=== PATIENT | male | born 1940 | race Caucasian/White ===

== ENCOUNTER → 2016-03-28 | Outpatient (CLI) | payer MEDICARE ==
[~2016-03-28] MED LIST: CLOBETASOL PROP0.053 TP; COUMADIN 5MG5 MG/TAB PO; GLUCOPHAGE1000 MG PO; LANTUS SOLOS100 U/ML SC; SIMVASTATIN5 M1 PO
== END ==
LOC: LAB 10:02
DX: J02.8 Acute pharyngitis due to other specified organisms (principal); R50.9 Fever, unspecified; L98.9 Disorder of the skin and subcutaneous tissue, unspecified; R68.89 Other general symptoms and signs

== ENCOUNTER → 2016-05-15 | Outpatient (CLI) | payer MEDICARE | LOC: LAB 09:38 | DX: Z51.81 Encounter for therapeutic drug level monitoring (principal); Z90.01 Acquired absence of eye; I82.409 Acute embolism and thrombosis of unspecified deep veins of unspecified lower extremity ==

== ENCOUNTER → 2016-07-13 | Outpatient (CLI) | payer MEDICARE ==
[2016-01-23 14:36] VITALS: BP 156/85
== END ==
LOC: LAB 10:10
DX: Z51.81 Encounter for therapeutic drug level monitoring (principal); Z79.01 Long term (current) use of anticoagulants; I82.409 Acute embolism and thrombosis of unspecified deep veins of unspecified lower extremity

== ENCOUNTER → 2016-09-26 | Outpatient (CLI) | payer MEDICARE ==
[2016-01-23 14:36] VITALS: BP 156/85
== END ==
LOC: LAB 09:31
DX: Z51.81 Encounter for therapeutic drug level monitoring (principal); I82.409 Acute embolism and thrombosis of unspecified deep veins of unspecified lower extremity

== ENCOUNTER → 2016-12-04 | Outpatient (CLI) | payer MEDICARE ==
[2016-01-23 14:36] VITALS: BP 156/85
== END ==
LOC: LAB 06:55
DX: I82.409 Acute embolism and thrombosis of unspecified deep veins of unspecified lower extremity (principal); E11.9 Type 2 diabetes mellitus without complications; E78.2 Mixed hyperlipidemia; E03.8 Other specified hypothyroidism

== ENCOUNTER → 2017-04-03 | Outpatient (CLI) | payer MEDICARE ==
[2016-01-23 14:36] VITALS: BP 156/85
[2017-04-03 10:57] LABS: PROTHROMBIN TIME 29.5 SECONDS (9.0-12.0)
== END ==
LOC: LAB 10:04
PROVIDERS: Family Medicine
DX: I80.12 Phlebitis and thrombophlebitis of left femoral vein (principal); L28.0 Lichen simplex chronicus

== ENCOUNTER → 2017-06-25 | Outpatient (CLI) | payer MEDICARE ==
[2016-01-23 14:36] VITALS: BP 156/85
[2017-06-25 07:56] LABS: PROTHROMBIN TIME 26.8 SECONDS (9.0-12.0)
== END ==
LOC: LAB 07:00
PROVIDERS: Family Medicine
DX: I80.12 Phlebitis and thrombophlebitis of left femoral vein (principal); E11.9 Type 2 diabetes mellitus without complications; L28.0 Lichen simplex chronicus; E78.2 Mixed hyperlipidemia; I10 Essential (primary) hypertension; E03.9 Hypothyroidism, unspecified

== ENCOUNTER → 2017-09-27 | Outpatient (CLI) | payer MEDICARE ==
[2016-01-23 14:36] VITALS: BP 156/85
[2017-09-27 10:50] LABS: PROTHROMBIN TIME 40.4 SECONDS (9.0-12.0)
== END ==
LOC: LAB 07:07
PROVIDERS: Family Medicine
DX: I80.12 Phlebitis and thrombophlebitis of left femoral vein (principal); L28.0 Lichen simplex chronicus

== ENCOUNTER → 2017-10-04 | Outpatient (CLI) | payer MEDICARE ==
[2016-01-23 14:36] VITALS: BP 156/85
[2017-10-04 08:21] LABS: PROTHROMBIN TIME 21.8 SECONDS (9.0-12.0)
== END ==
LOC: LAB 07:19
PROVIDERS: Family Medicine
DX: I80.12 Phlebitis and thrombophlebitis of left femoral vein (principal); L28.0 Lichen simplex chronicus

== ENCOUNTER → 2017-10-19 | Outpatient (CLI) | payer MEDICARE ==
[2016-01-23 14:36] VITALS: BP 156/85
[2017-10-19 11:25] LABS: ALBUMIN 4.3 g/dL (3.5-5.0); BUN/CREATININE RATIO 19.3 (6.0-26.0); CALCIUM 9.7 mg/dL (8.4-10.2); POTASSIUM 4.5 mmol/L (3.6-5.0); TOTAL BILIRUBIN 0.7 mg/dL (0.2-1.3); TOTAL PROTEIN 7.1 g/dL (6.3-8.2)
[2017-10-19 11:52] LABS: PROTHROMBIN TIME 26.5 SECONDS (9.0-12.0)
== END ==
LOC: LAB 07:08
PROVIDERS: Family Medicine
DX: E78.2 Mixed hyperlipidemia (principal); I80.12 Phlebitis and thrombophlebitis of left femoral vein; E11.9 Type 2 diabetes mellitus without complications; E03.9 Hypothyroidism, unspecified; I10 Essential (primary) hypertension

== ENCOUNTER → 2018-01-01 | Outpatient (CLI) | payer MEDICARE ==
[2016-01-23 14:36] VITALS: BP 156/85
[2018-01-01 11:49] LABS: PROTHROMBIN TIME 26.9 SECONDS (9.0-12.0)
== END ==
LOC: LAB 11:23
PROVIDERS: Family Medicine
DX: I82.412 Acute embolism and thrombosis of left femoral vein (principal); L28.0 Lichen simplex chronicus

== ENCOUNTER → 2018-01-22 | Outpatient (CLI) | payer MEDICARE ==
[2016-01-23 14:36] VITALS: BP 156/85
== END ==
LOC: RAD 11:24
DX: M19.031 Primary osteoarthritis, right wrist (principal); R20.2 Paresthesia of skin

== ENCOUNTER → 2018-05-01 | Outpatient (CLI) | payer MEDICARE ==
[2016-01-23 14:36] VITALS: BP 156/85
[2018-05-01 10:31] LABS: PROTHROMBIN TIME 22.4 SECONDS (9.0-12.0)
== END ==
LOC: LAB 09:59
PROVIDERS: Family Medicine
DX: I82.412 Acute embolism and thrombosis of left femoral vein (principal); L28.0 Lichen simplex chronicus

== ENCOUNTER → 2018-06-30 | Outpatient (CLI) | payer MEDICARE ==
[2016-01-23 14:36] VITALS: BP 156/85
[2018-06-30 08:08] LABS: PROTHROMBIN TIME 25.7 SECONDS (9.0-12.0)
== END ==
LOC: LAB 07:09
PROVIDERS: Family Medicine
DX: I82.412 Acute embolism and thrombosis of left femoral vein (principal); E11.9 Type 2 diabetes mellitus without complications

== ENCOUNTER → 2018-08-29 | Outpatient (CLI) | payer MEDICARE ==
[2016-01-23 14:36] VITALS: BP 156/85
== END ==
LOC: LAB 09:07
PROVIDERS: Family Medicine
DX: I82.412 Acute embolism and thrombosis of left femoral vein (principal)

== ENCOUNTER → 2018-10-13 | Outpatient (CLI) | payer MEDICARE ==
[2016-01-23 14:36] VITALS: BP 156/85
[2018-10-13 09:53] LABS: PROTHROMBIN TIME 24.6 SECONDS (9.0-12.0)
== END ==
LOC: LAB 09:24
PROVIDERS: Family Medicine
DX: I82.412 Acute embolism and thrombosis of left femoral vein (principal)

== ENCOUNTER → 2018-12-18 | Outpatient (CLI) | payer MEDICARE ==
[2016-01-23 14:36] VITALS: BP 156/85
[2018-12-18 07:21] LABS: ALBUMIN 4.4 g/dL (3.4-4.8)
[2018-12-18 07:24] LABS: PROTHROMBIN TIME 27.6 SECONDS (9.0-12.0); TOTAL PROTEIN 7.3 g/dL (6.2-8.1)
[2018-12-18 07:25] LABS: TOTAL BILIRUBIN 0.7 mg/dL (0.2-1.2)
== END ==
LOC: LAB 06:59
PROVIDERS: Family Medicine
DX: I82.412 Acute embolism and thrombosis of left femoral vein (principal); E78.2 Mixed hyperlipidemia; E11.9 Type 2 diabetes mellitus without complications; E03.9 Hypothyroidism, unspecified; I10 Essential (primary) hypertension

== ENCOUNTER → 2019-03-19 | Outpatient (CLI) | payer MEDICARE ==
[2016-01-23 14:36] VITALS: BP 156/85
== END ==
LOC: LAB 09:52
PROVIDERS: Family Medicine
DX: I80.12 Phlebitis and thrombophlebitis of left femoral vein (principal)

== ENCOUNTER → 2019-04-08 | Outpatient (CLI) | payer MEDICARE ==
[2016-01-23 14:36] VITALS: BP 156/85
[2019-04-08 12:31] LABS: PROTHROMBIN TIME 25.5 SECONDS (9.0-12.0)
== END ==
LOC: LAB 12:07
PROVIDERS: Family Medicine
DX: I80.12 Phlebitis and thrombophlebitis of left femoral vein (principal); E11.9 Type 2 diabetes mellitus without complications; E78.2 Mixed hyperlipidemia; I10 Essential (primary) hypertension; E03.9 Hypothyroidism, unspecified

== ENCOUNTER → 2019-11-27 | Outpatient (CLI) | payer MEDICARE ==
[2016-01-23 14:36] VITALS: BP 156/85
[2019-11-27 10:18] LABS: PROTHROMBIN TIME 34.9 SECONDS (9.0-12.0)
== END ==
LOC: LAB 09:42
PROVIDERS: Family Medicine
DX: Z86.718 Personal history of other venous thrombosis and embolism (principal)

== ENCOUNTER → 2020-01-05 | Outpatient (CLI) | payer MEDICARE ==
[2016-01-23 14:36] VITALS: BP 156/85
[2020-01-05 07:34] LABS: ALBUMIN 4.6 g/dL (3.4-4.8); POTASSIUM 4.4 mmol/L (3.5-5.1)
[2020-01-05 07:35] LABS: CALCIUM 9.7 mg/dL (8.3-10.5)
[2020-01-05 07:37] LABS: TOTAL PROTEIN 7.5 g/dL (6.2-8.1)
[2020-01-05 07:39] LABS: TOTAL BILIRUBIN 0.8 mg/dL (0.2-1.2)
== END ==
LOC: LAB 07:09
PROVIDERS: Family Medicine
DX: I10 Essential (primary) hypertension (principal); E78.2 Mixed hyperlipidemia; E11.9 Type 2 diabetes mellitus without complications; E03.9 Hypothyroidism, unspecified

== ENCOUNTER → 2021-01-06 | Outpatient (CLI) | payer MEDICARE ==
[2021-01-06 07:27] LABS: ALBUMIN 4.2 g/dL (3.4-4.8)
[2021-01-06 07:30] LABS: TOTAL PROTEIN 7.4 g/dL (6.2-8.1)
[2021-01-06 07:32] LABS: TOTAL BILIRUBIN 0.6 mg/dL (0.2-1.2)
[2021-01-06 07:35] LABS: DIRECT BILIRUBIN 0.2 mg/dL (0.0-0.5)
== END ==
LOC: LAB 06:48
PROVIDERS: Family Medicine
DX: E78.2 Mixed hyperlipidemia (principal); E03.9 Hypothyroidism, unspecified

== ENCOUNTER → 2021-01-11 | Outpatient (CLI) | payer MEDICARE | LOC: LAB 11:13 | DX: E11.9 Type 2 diabetes mellitus without complications (principal) ==

== ENCOUNTER → 2021-04-12 | Outpatient (CLI) | payer MEDICARE | LOC: LAB 09:32 | DX: E11.9 Type 2 diabetes mellitus without complications (principal) ==

== ENCOUNTER → 2021-07-28 | Outpatient (CLI) | payer MEDICARE ==
[2021-07-28 09:07] LABS: ALBUMIN 4.5 g/dL (3.4-4.8); POTASSIUM 4.7 mmol/L (3.5-5.1)
[2021-07-28 09:09] LABS: CALCIUM 9.8 mg/dL (8.3-10.5)
[2021-07-28 09:10] LABS: TOTAL PROTEIN 7.7 g/dL (6.2-8.1)
[2021-07-28 09:12] LABS: TOTAL BILIRUBIN 0.7 mg/dL (0.2-1.2)
== END ==
LOC: LAB 08:48
PROVIDERS: Family Medicine
DX: E03.9 Hypothyroidism, unspecified (principal); E11.9 Type 2 diabetes mellitus without complications; E78.2 Mixed hyperlipidemia

== ENCOUNTER → 2021-11-30 | Outpatient (CLI) | payer MEDICARE ==
[2021-11-30 08:38] LABS: URINE APPEARANCE CLEAR; URINE COLOR YELLOW
[2021-11-30 08:39] LABS: URINE BILIRUBIN NEGATIVE (NEGATIVE); URINE BLOOD NEGATIVE (NEGATIVE); URINE KETONE NEGATIVE (NEGATIVE); URINE LEUKOCYTE ESTERASE TRACE (NEGATIVE); URINE NITRATE NEGATIVE (NEGATIVE); URINE PROTEIN(semi-quant) NEGATIVE (NEGATIVE); URINE UROBILINOGEN NORMAL (NORMAL)
== END ==
LOC: LAB 08:19
PROVIDERS: Family Medicine
DX: N39.0 Urinary tract infection, site not specified (principal)

== ENCOUNTER → 2022-01-03 | Outpatient (CLI) | payer MEDICARE ==
[2022-01-03 10:16] LABS: URINE APPEARANCE CLOUDY; URINE BILIRUBIN NEGATIVE (NEGATIVE); URINE BLOOD TRACE (NEGATIVE); URINE COLOR YELLOW; URINE KETONE NEGATIVE (NEGATIVE); URINE LEUKOCYTE ESTERASE 2+ (NEGATIVE); URINE NITRATE NEGATIVE (NEGATIVE); URINE PROTEIN(semi-quant) TRACE (NEGATIVE); URINE UROBILINOGEN NORMAL (NORMAL); URINE WBC >50 /hpf (0-3)
== END ==
LOC: LAB 09:27
PROVIDERS: Family Medicine
DX: N39.0 Urinary tract infection, site not specified (principal)

== ENCOUNTER → 2022-01-10 | Outpatient (CLI) | payer MEDICARE ==
[2022-01-10 11:03] LABS: URINE APPEARANCE CLOUDY; URINE BILIRUBIN NEGATIVE (NEGATIVE); URINE BLOOD NEGATIVE (NEGATIVE); URINE COLOR YELLOW; URINE KETONE NEGATIVE (NEGATIVE); URINE LEUKOCYTE ESTERASE 1+ (NEGATIVE); URINE NITRATE NEGATIVE (NEGATIVE); URINE PROTEIN(semi-quant) TRACE (NEGATIVE); URINE UROBILINOGEN NORMAL (NORMAL); URINE WBC 16-30 /hpf (0-3)
== END ==
LOC: LAB 10:25
PROVIDERS: Family Medicine
DX: N39.0 Urinary tract infection, site not specified (principal); E11.9 Type 2 diabetes mellitus without complications

== ENCOUNTER → 2022-01-24 | Outpatient (CLI) | payer MEDICARE | LOC: LAB 07:00 | DX: R31.29 Other microscopic hematuria (principal); E78.2 Mixed hyperlipidemia; N39.0 Urinary tract infection, site not specified; E11.9 Type 2 diabetes mellitus without complications ==

== ENCOUNTER → 2022-12-31 | Outpatient (CLI) | payer MEDICARE | LOC: LAB 10:05 | DX: E11.9 Type 2 diabetes mellitus without complications (principal); I10 Essential (primary) hypertension ==

== ENCOUNTER → 2023-04-03 | Outpatient (CLI) | payer MEDICARE | LOC: LAB 08:41 | PROVIDERS: Family Medicine | DX: E11.9 Type 2 diabetes mellitus without complications (principal); E03.9 Hypothyroidism, unspecified ==

== ENCOUNTER → 2023-07-18 | Outpatient (CLI) | payer MEDICARE ==
[2023-07-18 09:40] LABS: CALCIUM 9.9 mg/dL (8.3-10.5)
== END ==
LOC: LAB 09:11
PROVIDERS: Family Medicine
DX: E11.9 Type 2 diabetes mellitus without complications (principal)

== ENCOUNTER → 2024-04-02 | Outpatient (CLI) | payer MEDICARE ==
[2024-04-02 10:02] LABS: CALCIUM 10.5 mg/dL (8.3-10.5)
== END ==
LOC: LAB 09:41
PROVIDERS: Family Medicine
DX: I10 Essential (primary) hypertension (principal); E78.2 Mixed hyperlipidemia; E11.9 Type 2 diabetes mellitus without complications; E03.9 Hypothyroidism, unspecified